=== PATIENT | male | born 1980 | race Caucasian/White ===

== ENCOUNTER 2018-07-08 19:44 | Emergency (ER) | payer BC ==
[~2018-07-08] VITALS: Ht 180.3 cm; Wt 68.0 kg
[2018-07-08 20:00] VITALS: BP 133/78
--- NOTE | 2018-07-08 20:00 | NUR ---
ED Nurse Note: Ambulated to ED c/o left index finger laceration at 1930. AO4. NAD. accompanied by significant other.
[2018-07-08] MEDS ORDERED: Bacitracin Oint UD TOPIC ONE (20:15)
[2018-07-08] MEDS ORDERED: Norco 5mg/325mg tab ORAL ONE (20:15)
--- NOTE | 2018-07-08 20:15 | NUR ---
ED Nurse Note: imaging at bedside.
--- NOTE | 2018-07-08 20:41 | Emergency Room Report ---
History of Present Illness General Chief Complaint: Laceration Source: Patient Present Illness HPI 38-year-old male patient presents the ER complaining of laceration on left hand index finger. Patient reports he is right-hand dominant. Patient states that he was "cutting granola" when he accidentally cut his finger. Reports he is up- to-date on his tetanus vaccination, states he had it approximately 1 year ago. Reports bleeding at the site of injury, states well controlled with gauze at this time. Denies fever, chest pain, shortness of breath. Denies hx of bleeding disorder or diabetes. Allergies: Coded Allergies: No Known Allergies (Unverified , 07/08/18) Patient History Past Medical History: see triage record Reviewed Nursing Documentation: PMH: Agreed; PSxH: Agreed Nursing Documentation-PMH Past Medical History: No Stated History Review of Systems All Other Systems: negative except mentioned in HPI Physical Exam Vital Signs Date Time Temp Pulse Resp B/P (MAP) Pulse Ox O2 Delivery O2 Flow Rate FiO2 07/08/18 19:57 98.2 76 12 133/78 97 Room Air Sp02 EP Interpretation: reviewed, normal General Appearance: well appearing, no apparent distress, alert, GCS 15, non- toxic Head: normocephalic, atraumatic Eyes: bilateral eye normal inspection, bilateral eye PERRL ENT: hearing grossly normal, normal pharynx, no angioedema, normal voice, uvula midline, moist mucus membranes Neck: full range of motion Respiratory: lungs clear, normal breath sounds, no rhonchi, no respiratory distress, no accessory muscle use, no wheezing, speaking full sentences Cardiovascular #1: regular rate, rhythm, no edema Cardiovascular #2: 2+ radial (R), 2+ radial (L) Musculoskeletal: back normal, digits/nails normal, gait/station normal, normal range of motion, non-tender, other - flexion and extension intact at DIP/PIP/ MCP of left hand index finger Neurologic: alert, oriented x3, responsive, motor strength/tone normal, sensory intact Psychiatric: mood/affect normal Skin: laceration - left index finger distal nail tip avulsion through nail, nail bed laceration, cuticle intact, no subungaul hematoma, no bone visualized Procedures Laceration/Wound Repair Laceration/Wound Repair : Consent: Verbal Wound Location: upper extremity - left hand index finger Wound's Depth, Shape: superficial, into muscle, linear Wound Length (cm): 2 Wound Explored: contaminated Irrigated w/ Saline (ccs): 10 Betadine Prep?: Yes Anesthesia: 1% Lidocaine Volume Anesthetic (ccs): 2 Wound Debrided: extensive Wound Repaired With: sutures Suture Size/Type: 5:0 Number of Sutures: 3 Layer Closure?: No Sterile Dressing Applied?: Yes Splint Applied?: Yes Sling Applied?: No Patient Tolerated: Well Complications: None Medical Decision Making PA Attestation Dr. Puga is my supervising Physician whom patient management has been discussed with. Diagnostic Impression: Primary Impression: Avulsion of finger tip ER Course Pt presents to ED c/o laceration on left index finger. DDX considered but are not limited to laceration, abrasion, contusion, cellulitis, nail bed injury, avulsion, fracture, retained foreign body. VITAL SIGNS are WNL, patient is afebrile ED INTERVENTIONS: Provided with [place] for pain in the ER. Xray negative for fracture, no retained FB, per the preliminary reading. Wound was cleaned and irrigated using copious normal saline and Betadine. Digital block using Lidocaine 1%. Laceration repaired. See procedure note. 3 sutures placed. Finger splinted. Wound cleaned and covered using sterile dressing and Bacitracin. Patient reports understanding and agreement to treatment plan. Keep wound clean and dry. Followup with PCP in 2-3 days for wound check and suture removal in 7-12 days. ER precautions given. Patient seen and evaluated by Dr. Puga, agrees with assessment and treatment plan. DISCHARGE: Rx provided for Keflex Rx provided for Bacitracin Rx provided for Tylenol #3, may cause drowsiness, do not take prior to drinking , driving, operating heavy machinery. Take OTC Tylenol/Motrin following completion of Tylenol #3. At this time pt is stable for d/c to home. Patient resting comfortably, in no acute distress, nontoxic appearing, talking without difficulty. Will provide with patient care instructions and any necessary prescriptions. Patient to take medication as instructed. Care plan and follow-up instructions provided. Work note provided to patient. Patient questions asked and answered. Patient instructed to follow-up with primary care provider for wound check and suture removal. ER precautions given. Patient instructed to return to ER immediately for any new or worsening of symptoms. - Please note that this Emergency Department Report was dictated using Dragon inspection and testing supervisor technology software, occasionally this can lead to erroneous entry secondary to interpretation by the dictation equipment. Other X-Ray Diagnostic Results Other X-Ray Diagnostic Results : X-Ray ordered: left hand # of Views/Limited Vs Complete: 3 View Indication: Pain EP Interpretation: Yes PA Xray: Interpretation reviewed, by supervising MD, and agrees with findings. Interpretation: no dislocation, no soft tissue swelling, no fractures Impression: No acute disease PA Scribe Text Dionisio Gordon PA-C Last Vital Signs Date Time Temp Pulse Resp B/P (MAP) Pulse Ox O2 Delivery O2 Flow Rate FiO2 07/08/18 19:57 98.2 76 12 133/78 97 Room Air Status: improved Disposition: HOME, SELF-CARE Condition: Stable Scripts Bacitracin/Polymyxin B Sulfate (BACITRACIN-POLYMYXIN OINTMENT) 28.35 Gm Oint...g. 1 APPLIC TP BID, #28 GM Prov: Jose Gordon 07/08/18 Acetaminophen With Codeine (T#3) (TYLENOL #3 TAB*) Y Tab 1 TAB ORAL Q6HR PRN for For Pain, #10 TAB Prov: Jose Gordon 07/08/18 Cephalexin* (KEFLEX*) 500 Mg Capsule 500 MG ORAL EVERY 12 HOURS, #14 CAP 0 Refills Prov: Jose Gordon 07/08/18 Patient Instructions: Nail Avulsion, Nail Bed Injury, [id number], Laceration Care, Adult Additional Instructions: Patient instructed to follow-up with primary care provider/ hand specialist in 2 -3 days for wound check Suture removal in 7-12 days. Take medications as directed. Take Tylenol No. 3 as needed for pain, may cause drowsiness, do not take prior to drinking, driving, operating heavy machinery. Keep wound clean and dry. Patient questions asked and answered. ER precautions given, patient instructed to return to ER immediately for any new or worsening of symptoms. Jose Gordon Jul 08, 2018 20:41
[2018-07-08] MEDS ORDERED: Lidocaine 1% Plain 30 ml INJ ONE (20:45)
[2018-07-08] MEDS ORDERED: ACETAMINOPHEN-1 EAC1 ORAL (21:23)
[2018-07-08] MEDS ORDERED: CEPHALEXIN500 MG ORAL (21:23)
[2018-07-08] MEDS ORDERED: BACITRACIN-P28.35 GM TP (21:23)
[2018-07-08 21:30] VITALS: BP 133/78
--- NOTE | 2018-07-08 21:31 | NUR ---
ED Nurse Note: Patient cleared for discharge per ERMD. AO4 NAD. VSS. Accompanied by significant other. Patient given prescriptions and discharge instructions; verbalized understanding. ID band removed. Patient ambulated steady with all personal belongings.
--- NOTE | 2018-07-09 10:08 | Diagnostic Imaging Report ---
Indication: left hand pain. Findings: 3 views of the left hand were obtained. Normal alignment is demonstrated. No acute fractures, erosions, or periosteal reaction are seen. Soft tissues are unremarkable. Impression: No acute findings.
== END 2018-07-08 21:30 | disposition home or self-care (01) ==
LOC: EMR 20:15
DX: S61.211A Laceration without foreign body of left index finger without damage to nail, initial encounter (principal); W26.0XXA Contact with knife, initial encounter; Y92.89 Other specified places as the place of occurrence of the external cause; Z87.891 Personal history of nicotine dependence
CPT/HCPCS: 12002; 73130; 99283; J2001